=== PATIENT | male | born 1980 | race African-American/Black ===

== ENCOUNTER 2023-11-13 14:15 | Emergency (ER) | payer MEDICAID ==
[~2023-11-13] VITALS: Ht 172.7 cm; Wt 79.0 kg
[2023-11-13 14:24] VITALS: O2SAT 99
[2023-11-13 15:10] LABS: BASOPHILS % 0.6 % (0.0-2.0); HEMATOCRIT. 42.9 % (42.0-52.0); HEMOGLOBIN. 14.4 g/dL (14.0-18.0); LYMPHOCYTES % 13.2 % (20.0-50.0); MEAN CORPUSCULAR HEMOGLOBIN 28.1 pg (28.0-32.0); MEAN CORPUSCULAR HGB CONC 33.6 g/dL (31.0-37.0); MEAN CORPUSCULAR VOLUME 83.7 fL (80.0-94.0); MEAN PLATELET VOLUME 8.5 fl (7.4-10.4); MONOCYTES % 6.8 % (2.0-8.0); NEUTROPHILS % 79.4 % (40.0-76.0); PLATELET 176 x1000/uL (130-400); RED BLOOD CELL COUNT 5.12 mill/uL (4.7-6.1); RED CELL DISTRIBUTION WIDTH 15.1 % (11.6-14.6); WHITE BLOOD COUNT 8.5 x1000/uL (4.5-11.0)
[2023-11-13 15:16] LABS: CHLORIDE 105 mEq/L (98-107); POTASSIUM 4.1 mEq/L (3.5-5.1); SODIUM 136 mEq/L (136-145)
[2023-11-13 15:17] LABS: CARBON DIOXIDE 22 mEq/L (21-32)
[2023-11-13 15:18] LABS: CALCIUM 9.1 mg/dL (8.7-10.4)
[2023-11-13 15:22] LABS: CREATININE 1.1 mg/dL (0.6-1.3)
[2023-11-13 15:23] LABS: GLUCOSE 74 mg/dL (70-105); UREA NITROGEN BLOOD 13 mg/dL (9-23)
[2023-11-13] MEDS: ACETAMINOPHEN 325MG TABLET PO ONE (15:30)
[2023-11-13] MEDS: TETANUS, DIPHTHERIA, PERTUSSIS VAC/PF 0.5ML (>10YR OLD) IM ONE (15:30)
[2023-11-13] MEDS: LIDOCAINE HCL 1% 20ML VIAL (Pyxis) INJ INFIL ONE (18:00)
[2023-11-13] MEDS ORDERED: LEVETIRACETAM 500MG TABLET PO ONE (19:30)
[2023-11-13] MEDS ORDERED: AMOX1TAB16 MT (20:36)
[2023-11-13] MEDS ORDERED: KETO10TA2 MT (20:36)
[2023-11-13] MEDS ORDERED: LEVE750T4 MT (20:36)
[2023-11-13] MEDS: LEVETIRACETAM 500MG TABLET PO NR (21:21)
[2023-11-13 21:46] VITALS: TEMP 98
[2023-11-13 22:04] VITALS: BP 167/117; PULSE 60; RESP 18
[2023-11-13] MEDS: KETOROLAC 10MG TABLET PO ONE (22:04)
== END 2023-11-13 22:12 | disposition home or self-care (01) ==
LOC: ER 14:28 → EDBD 14:28 → ER 22:12
DX: S52.612A Displaced fracture of left ulna styloid process, initial encounter for closed fracture (principal); S02.85XA Fracture of orbit, unspecified, initial encounter for closed fracture; S63.251A Unspecified dislocation of left index finger, initial encounter; R56.9 Unspecified convulsions; J45.909 Unspecified asthma, uncomplicated; I10 Essential (primary) hypertension; X58.XXXA Exposure to other specified factors, initial encounter; Y93.89 Activity, other specified; Y92.89 Other specified places as the place of occurrence of the external cause; Y99.8 Other external cause status
CPT/HCPCS: 99285; 70450; 26770; 80048; 85025; 36415; 73080; 73130; 72125; 90715; 90471; 93005; J3490